=== PATIENT | female | born 1945 | race Caucasian/White ===

== ENCOUNTER 2016-12-08 13:10 | Inpatient (IN) | payer MEDICAID, MEDICARE, OTHER ==
[~2016-12-08] VITALS: Ht 142.2 cm; Wt 61.2 kg
[~2016-12-08 13:10] MED LIST: GARL600T2 PO
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
--- NOTE | 2016-12-08 13:55 | NUR ---
REFUSED TO SIGN ACI AND WANTS HER VISIT CANCELLED. ADMITTING ASKED TO ASSIST HER.
--- NOTE | 2016-12-08 14:05 | NUR ---
PATIENT SEEN TALKING TO SELF. REQUESTING PSYCHIATRIC HELP UPON CONVERSATION. MD INFORMED.
[2016-12-08 15:23] LABS: BASOPHILS % (AUTO) 0.6 % (0.0-2.0); EOSINOPHILS # (AUTO) 0.1 /CMM (0.0-0.7); EOSINOPHILS % (AUTO) 1.9 % (0.0-6.0); HEMATOCRIT 36 % (33-45); HEMOGLOBIN 12.5 g/dL (11.5-14.8); LYMPHOCYTES # (AUTO) 1.2 /CMM (0.8-4.8); LYMPHOCYTES % (AUTO) 19.2 % (20.0-44.0); MEAN CORPUSCULAR HEMOGLOBIN 32 PG (26.0-33.0); MEAN CORPUSCULAR HGB CONC 35 g/dl (31.0-36.0); MEAN CORPUSCULAR VOLUME 93 fL (82-100); MONOCYTES # (AUTO) 0.8 /CMM (0.1-1.30); MONOCYTES % (AUTO) 12.4 % (2.0-12.0); NEUTROPHILS % (AUTO) 65.9 % (43.0-81.0); PLATELET COUNT (AUTO) 210 /CMM (150-450); RDW COEFFICIENT OF VARIATION 12.7 (11.5-15.0); WHITE BLOOD COUNT (AUTO) 6.1 K/uL (4.3-11.0)
[2016-12-08 15:33] LABS: CARBON DIOXIDE 25 mmol/L (21-32); CHLORIDE 107 mmol/L (98-107); CREATININE 0.6 mg/dL (0.6-1.3); GLUCOSE 94 mg/dL (74-106); POTASSIUM 3.8 mmol/L (3.5-5.1); SODIUM SERUM 141 mmol/L (136-145); UREA NITROGEN, BLOOD 9 mg/dL (7-18)
[2016-12-08 15:39] LABS: ALANINE AMINOTRANSFERASE 21 U/L (12-78); ALBUMIN 3.9 g/dL (3.4-5.0); ALCOHOL, BLOOD < 3 mg/dL (0-0); ALKALINE PHOSPHATASE 72 U/L (46-116); ASPARTATE AMINOTRANSFERASE 20 U/L (15-37); BILIRUBIN,DIRECT 0.1 mg/dL (0.0-0.2); BILIRUBIN,TOTAL 0.5 mg/dL (0.2-1.0); TOTAL PROTEIN, SERUM 6.9 g/dL (6.4-8.2)
[2016-12-08 15:40] LABS: SALICYLATE 1.3 mg/dL (2.8-20.0)
[2016-12-08 15:41] LABS: ACETAMINOPHEN 0 ug/ml (10-30)
--- NOTE | 2016-12-08 16:01 | NUR ---
CALLED MICKIE HEAVY DUTY TRUCK MECHANIC.
--- NOTE | 2016-12-08 16:15 | NUR ---
RIGHT WRIST WRAPPED WITH LAYO PER GEORGETET ROJAS.
--- NOTE | 2016-12-08 17:02 | NUR ---
CALLED REYNA STYLIST ASSISTANT, SHE SAID SHE WOULD BE HERE IN AN HOUR.
--- NOTE | 2016-12-08 19:20 | NUR ---
REPORT GIVEN TO JOI DAVILA FOR ALBERT.
--- NOTE | 2016-12-08 19:30 | NUR ---
PATIENT RESTING IN ER BED, NAD NOTED, SKIN WARM AND DRY. WILL CONTINUE TO MONITOR
--- NOTE | 2016-12-08 21:02 | NUR ---
REPORT GIVEN TO MICHELLE AVILEZ RN FOR ALBERT
[2016-12-08 21:45] VITALS: BP 116/72
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
[2016-12-08] MEDS ORDERED: MAG HYDROX/AL HYDROX/SIMETH 30 ML UDC PO PRN (22:30)
[2016-12-08] MEDS ORDERED: LORAZEPAM 0.5 MG TABLET PO PRN (22:30)
[2016-12-08] MEDS ORDERED: MAGNESIUM HYDROXIDE 30 ML UDC PO PRN (22:30)
[2016-12-08] MEDS ORDERED: ZOLPIDEM TARTRATE 5 MG TABLET PO PRN (22:30)
[2016-12-08] MEDS ORDERED: ACETAMINOPHEN 325 MG TABLET PO PRN (22:30)
--- NOTE | 2016-12-09 06:35 | NUR ---
GPS RN NOTES CALL MADE TO ALISON SAMANIEGO, PATIENTS SON. MADE AWARE OF OF MOTHERS ADMISSION.
[2016-12-09 08:00] VITALS: BP 110/61
[2016-12-09] MEDS: risperiDONE-M 0.5 MG TAB.RAPDIS PO SCH ×2 (12:24→21:42)
[2016-12-09 16:00] VITALS: BP 114/61
[2016-12-09 18:33] LABS: BASOPHILS % (AUTO) 0.2 % (0.0-2.0); EOSINOPHILS # (AUTO) 0.1 /CMM (0.0-0.7); EOSINOPHILS % (AUTO) 2.1 % (0.0-6.0); HEMATOCRIT 39 % (33-45); HEMOGLOBIN 12.9 g/dL (11.5-14.8); LYMPHOCYTES # (AUTO) 1.7 /CMM (0.8-4.8); LYMPHOCYTES % (AUTO) 26.4 % (20.0-44.0); MEAN CORPUSCULAR HEMOGLOBIN 31 PG (26.0-33.0); MEAN CORPUSCULAR HGB CONC 33 g/dl (31.0-36.0); MEAN CORPUSCULAR VOLUME 95 fL (82-100); MONOCYTES # (AUTO) 0.6 /CMM (0.1-1.30); MONOCYTES % (AUTO) 9.8 % (2.0-12.0); NEUTROPHILS % (AUTO) 61.5 % (43.0-81.0); PLATELET COUNT (AUTO) 219 /CMM (150-450); RDW COEFFICIENT OF VARIATION 13.6 (11.5-15.0); RED BLOOD CELL COUNT(AUTO) 4.11 MIL/uL (4.0-5.2); WHITE BLOOD COUNT (AUTO) 6.6 K/uL (4.3-11.0)
[2016-12-09 18:54] LABS: ALBUMIN 3.6 g/dL (3.4-5.0); BILIRUBIN,TOTAL 0.5 mg/dL (0.2-1.0); CALCIUM, SERUM 8.7 mg/dL (8.5-10.1); CREATININE 0.8 mg/dL (0.6-1.3); POTASSIUM 3.8 mmol/L (3.5-5.1)
[2016-12-09 19:07] LABS: CHOLESTEROL 189 mg/dL (<200); HDL CHOLESTEROL 71 mg/dL (40-60); LDL 100 mg/dL (0-99); TRIGLYCERIDES 123 mg/dL (30-150)
[2016-12-09 20:00] VITALS: BP 144/60
[2016-12-09 20:57] LABS: TOTAL PROTEIN, SERUM 6.6 g/dL (6.4-8.2)
[2016-12-10 08:08] VITALS: BP 110/76
[2016-12-10] MEDS: risperiDONE-M 0.5 MG TAB.RAPDIS PO SCH ×2 (08:27→21:12)
--- NOTE | 2016-12-10 09:00 | NUR ---
[id number]: LEFT A MESSAGE ON [facility] WOUND NURSE OFFICE REGARDING FOLLOWING UP WITH PT'S WOUND CONSULT.
[2016-12-10 15:40] VITALS: BP 124/68
[2016-12-10 19:57] VITALS: BP 106/59
[2016-12-10 22:00] VITALS: BP 107/65
--- NOTE | 2016-12-10 23:15 | NUR ---
RN GPS NOTES PT. C/O ANXIETY ,ATIVAN 1 MG PO PRN GIVEN PER PT. REQUEST
--- NOTE | 2016-12-11 07:04 | NUR ---
RN NOTES PATIENT IN BED, RESTING COMFORTABLY, NO SOB, NO DISTRESS, NO BEHAVIOR DISTURBANCE DURING SHIFT,DENIES SI/HI AT THIS TIME
[2016-12-11 08:20] VITALS: BP 122/73
[2016-12-11] MEDS: risperiDONE-M 0.5 MG TAB.RAPDIS PO SCH ×2 (08:29→22:10)
--- NOTE | 2016-12-11 10:28 | NUR ---
WOUND CARE CONSULT PATIENT SEEN AND PARTIAL SKIN ASSESSMENT DONE; PATIENT ONLY ALLOWED FEET TO BE ASSESSED. PATIENT NOTED TO HAVE MULTIPLE OPEN BLISTERS ON THE BILATERAL FEET, POA. MULTIPLE BRUISES NOTED FROM ADMISSION PHOTOS. WOUND TREATMENT ORDERED AND DISCUSSED WITH NURSING STAFF AT THE BEDSIDE. PATIENT VLADISLAV 22. PT ON STRIKER GEL MATTRESS. MD IN AGREEMENT WITH TREATMENT PLAN. WILL CONTINUE TO FOLLOW PATIENT NEEDED.
[2016-12-11] MEDS ORDERED: ATORVASTATIN 10 MG TABLET PO SCH (11:00)
[2016-12-11] MEDS ORDERED: NEOMY SULF/BACITRAC ZN/POLY 15 GM TUBE TP SCH (11:30)
--- NOTE | 2016-12-11 13:11 | NUR ---
washtub worker helper left an updated clinical via voicemail to Anny Walters case finishing machine adjuster for [employer] ([phone]). washtub worker helper will follow-up. Auth # [id number]
[2016-12-11] MEDS: NEOMY SULF/BACITRAC ZN/POLY 15 GM TUBE TP SCH (13:12)
[2016-12-11 15:39] VITALS: BP 136/83
--- NOTE | 2016-12-11 15:51 | NUR ---
Initial Discharge Note: Per son, patient rents a room in a house [address] [place] [address] ([phone]). general farmworker spoke to patient's son Bryson Tolbert ([phone]) who stated that he cannot take care of her and he lives in [place]. general farmworker will help form a safe and proper discharge.
[2016-12-11 19:44] VITALS: BP 148/72
[2016-12-11] MEDS: ATORVASTATIN 10 MG TABLET PO SCH (22:10)
--- NOTE | 2016-12-11 23:00 | NUR ---
A/A/o times four, in good spirits.pleasant and coopertive,interacting with rm mate appears to be getting along .Took meds without any trouble.
--- NOTE | 2016-12-12 06:19 | NUR ---
Slept most of night. no c/o.kept safe.
[2016-12-12 08:00] VITALS: BP 122/73
[2016-12-12] MEDS: risperiDONE-M 0.5 MG TAB.RAPDIS PO SCH ×3 (08:59→21:21)
[2016-12-12] MEDS: NEOMY SULF/BACITRAC ZN/POLY 15 GM TUBE TP SCH (09:02)
--- NOTE | 2016-12-12 10:03 | NUR ---
UR Update: rolled materials worker spoke to Anny Walters rifle case repairer for [employer] ([phone]) who stated that she would authorize until 12/15/16 with a review due that day. rolled materials worker will follow-up. Auth # [id number]
--- NOTE | 2016-12-12 12:37 | NUR ---
precast worker spoke to patient regarding discharge plan and placement. Patient stated that she wanted to return to the room she rents in a house located at [address] [place] [address] ([phone]). Patient stated that she had paid rent for the month and should be able to return. Patient stated that her son Bryson has the phone number to Isaac Denton the man who rents her the room. precast worker will follow-up with patient's son.
--- NOTE | 2016-12-12 12:42 | NUR ---
tar worker attempted to contact patient's son Bryson Tolbert ([phone]) to obtain Isaac Denton phone number. However, he was unavailable. tar worker left a detailed voicemail with direct contact information. tar worker will follow-up.
[2016-12-12 16:08] VITALS: BP 114/69
[2016-12-12 20:36] VITALS: BP 135/74
[2016-12-12] MEDS: ATORVASTATIN 10 MG TABLET PO SCH (21:20)
--- NOTE | 2016-12-13 06:52 | NUR ---
RN NOTES PATIENT IN BED, RESTING COMFORTABLY, NO SOB, NO DISTRESS, NO BEHAVIOR DISTURBANCE DURING SHIFT,DENIES SI/HI AT THIS TIME.
[2016-12-13 08:48] VITALS: BP 111/65
[2016-12-13] MEDS: NEOMY SULF/BACITRAC ZN/POLY 15 GM TUBE TP SCH (08:54)
[2016-12-13] MEDS: risperiDONE-M 0.5 MG TAB.RAPDIS PO SCH ×3 (08:55→21:13)
--- NOTE | 2016-12-13 10:10 | NUR ---
poultry offal worker attempted to contact patient's son Bryson Tolbert ([phone]) to obtain Isaac Denton phone number. However, he was unavailable. poultry offal worker left a detailed voicemail with direct contact information. poultry offal worker will follow-up.
[2016-12-13 16:00] VITALS: BP 120/76
[2016-12-13 20:17] VITALS: BP 134/68
[2016-12-13] MEDS: ATORVASTATIN 10 MG TABLET PO SCH (21:12)
[2016-12-14] MEDS: risperiDONE-M 0.5 MG TAB.RAPDIS PO SCH (08:42)
[2016-12-14] MEDS: NEOMY SULF/BACITRAC ZN/POLY 15 GM TUBE TP SCH (08:46)
[2016-12-14 09:08] VITALS: BP 114/72
--- NOTE | 2016-12-14 09:38 | NUR ---
direct care worker attempted to contact Isaac Denton and Donya Denton ([phone]). Per patient, she rents a room from them and has paid this months rent. Patient wants to return upon discharge. direct care worker attempted to confirm if patient can return to that address upon discharge. However they were unavailable. direct care worker will attempt again later.
--- NOTE | 2016-12-14 13:49 | NUR ---
signal worker helper spoke Donya Denton ([phone]), who confirmed that patient does rent a room from her and her Isaac Denton. Per Donya, patient can return upon discharge and she will pick her up tomorrow 12/15/16 at 5:00PM.
[2016-12-14 16:38] VITALS: BP 107/74
[2016-12-14 20:00] VITALS: BP 116/69
[2016-12-14] MEDS: ATORVASTATIN 10 MG TABLET PO SCH (21:33)
[2016-12-14] MEDS ORDERED: risperiDONE-M 0.5 MG TAB.RAPDIS PO SCH (22:00)
[2016-12-15 08:00] VITALS: BP 98/59
[2016-12-15] MEDS ORDERED: risperiDONE-M 0.5 MG TAB.RAPDIS PO SCH (09:00)
[2016-12-15] MEDS: NEOMY SULF/BACITRAC ZN/POLY 15 GM TUBE TP SCH (09:01)
--- NOTE | 2016-12-15 10:12 | NUR ---
DR. KILLIAN GAVE AND ORDER TO D/C HOLD AND D/C HOME PT. WITHOUT DISTRESS, DENIES SUICIDAL AND HOMICIDAL AND TO FOLLOW UP WITH PSYCH AND MEDICAL DOCTORS.
--- NOTE | 2016-12-15 10:19 | NUR ---
DR. BURNS MADE OF THE DISCHARGE AND RECONCILED MEDS AND WROTE PRESCRIPTIONS. TO FOLLOW UP WITH MEDICAL DOCTOR AND TO FOLLOW UP WITH ORTHO DOCTOR IN 1 WEEK.
--- NOTE | 2016-12-15 14:49 | NUR ---
black ash worker spoke to Donya Denton ([phone]), who confirmed that she would be home to meet the patient at 5:00PM.
--- NOTE | 2016-12-15 14:50 | NUR ---
Discharge Note: Patient will be discharged back home to [address] [place] [address] ([phone]). Via taxi. Patient's son Bryson Tolbert ([phone]) and patient's landlord Donya Denton ([phone]) were both notified. Patient was agreeable with the discharge plan. Patient's mood and affect are appropriate. Patient denies suicidal and homicidal ideations. grain farmworker referred patient to [facility] ([phone]) [facility] [place] [address], patient agreed to follow-up within 30 days. grain farmworker scheduled a follow-up appointment for patient with Dr. Roche from the [facility] for 12/22/16 at 2:30PM [facility] [facility] [address] [place] [address] ([phone]). Facilitated info to IDT team who are in agreement with discharge arrangement. The multidisciplinary exitcare form was done, printed, signed, and given to the patient.
[2016-12-15 16:00] VITALS: BP 145/81
--- NOTE | 2016-12-15 16:50 | NUR ---
PT. LEFT THE UNIT WITH BELONGINGS AND ESCORTED BY STAFF TO THE LOBBY. PICTURES TAKEN FOR THE SKIN ISSUES, DISCHARGE PAPERS GIVEN. PT. INSTRUCTED ON MEDS TO CONTINUE AT HOME AND VERBALIZES UNDERSTANDING AND ADVISED TO MAKE A FOLLOW UP TO PSYCH AND MEDICAL DOCTORS AND AGREED. PT. WITH AN APPOINTMENT SCHEDULED ON DECEMBER 22, 2016 AT 2:[address] STILES AND AGREED. LEFT WITHOUT DISTRESS, AMBULATORY AND ON STABLE CONDITION. V/S TAKEN: BP 132/84, NJ 87, RR 18, OXYGEN SAT 97% AND TEMP;98.1 Addendum: 12/15/16 at 1717 by ROX MAN RN LEFT VIA A TAXI CAB.
--- NOTE | 2016-12-18 16:52 | NUR ---
UR Update: commissary worker left a voicemail for Anny Walters field nurse case manager for N ([phone]) providing the discharge summary. Auth # [id number]
== END 2016-12-15 16:50 | disposition home or self-care (01) | DRG 885 ==
LOC: ER 13:16 → GPS 20:22
PROVIDERS: ADMIT Psychiatry & Neurology Psychiatry; ATTEND Internal Medicine
DX: F31.2 Bipolar disorder, current episode manic severe with psychotic features (principal); Z91.19 Patient's noncompliance with other medical treatment and regimen; F29 Unspecified psychosis not due to a substance or known physiological condition; S52.551A Other extraarticular fracture of lower end of right radius, initial encounter for closed fracture; F41.9 Anxiety disorder, unspecified; Z87.01 Personal history of pneumonia (recurrent); Z73.6 Limitation of activities due to disability; Y93.9 Activity, unspecified; Y92.009 Unspecified place in unspecified non-institutional (private) residence as the place of occurrence of the external cause
CPT/HCPCS: 36415; 73110; 80048-TC; 80053-TC; 80061-TC; 80076-TC; 85025-TC; 87081-TC; A4606; G0480; Z7610

== ENCOUNTER 2017-10-27 22:04 | Inpatient (IN) | payer OTHER ==
[~2017-10-27] VITALS: Ht 149.9 cm; Wt 65.8 kg
--- NOTE | 2017-10-27 23:09 | NUR ---
BIBSELF C/O DEPRESSION D/T BEING HOMELESS AND UNABLE TO ACCESS BANK ACCOUNTS. DENIES SI / HI. PT AOX3 RR EVEN AND UNLABORED. NO SOB NOTED. NAD NOTED. NO NVD AT THIS TIME. PT WAITING FOR MD FULTON.
--- NOTE | 2017-10-27 23:34 | NUR ---
RADIOLOGY AT BEDSIDE FOR CXR
--- NOTE | 2017-10-27 23:45 | NUR ---
DR. RIDLEY AT BEDSIDE FOR EVAL
--- NOTE | 2017-10-27 23:51 | NUR ---
LAB AT BEDSIDE FOR BLOOD DRAW
[2017-10-28 00:03] LABS: BASOPHILS % (AUTO) 0.4 % (0.0-2.0); EOSINOPHILS % (AUTO) 2.4 % (0.0-6.0); HEMATOCRIT 39 % (33-45); HEMOGLOBIN 12.6 g/dL (11.5-14.8); LYMPHOCYTES # (AUTO) 1.2 /CMM (0.8-4.8); LYMPHOCYTES % (AUTO) 23.9 % (20.0-44.0); MEAN CORPUSCULAR HEMOGLOBIN 31 PG (26.0-33.0); MEAN CORPUSCULAR HGB CONC 32 g/dl (31.0-36.0); MEAN CORPUSCULAR VOLUME 97 fL (82-100); MONOCYTES # (AUTO) 0.5 /CMM (0.1-1.30); MONOCYTES % (AUTO) 9.8 % (2.0-12.0); NEUTROPHILS # (AUTO) 3.1 /CMM (1.8-8.9); NEUTROPHILS % (AUTO) 63.5 % (43.0-81.0); PLATELET COUNT (AUTO) 235 /CMM (150-450); RDW COEFFICIENT OF VARIATION 13.2 (11.5-15.0); RED BLOOD CELL COUNT(AUTO) 4.06 MIL/uL (4.0-5.2); WHITE BLOOD COUNT (AUTO) 4.9 K/uL (4.3-11.0)
[2017-10-28 00:08] LABS: APPEARANCE,URINE CLEAR (CLEAR); BILIRUBIN,URINE NEGATIVE (NEGATIVE); BLOOD, URINE NEGATIVE Ery/uL (NEGATIVE); COLOR,URINE YELLOW (YELLOW); KETONES,URINE NEGATIVE (NEGATIVE); LEUKOCYTE ESTERASE ,URINE NEGATIVE (NEGATIVE); NITRITE, URINE NEGATIVE (NEGATIVE); PH,URINE 5.5 (5.0-8.0); PROTEIN,URINE NEGATIVE (NEGATIVE); UGLUCOSE NEGATIVE (NEGATIVE); UROBILINOGEN,URINE 0.2 EU/dL (0.2)
[2017-10-28 00:19] LABS: CALCIUM, SERUM 8.3 mg/dL (8.5-10.1); CARBON DIOXIDE 27 mmol/L (21-32); CHLORIDE 107 mmol/L (98-107); CREATININE 0.9 mg/dL (0.6-1.3); GLUCOSE 101 mg/dL (74-106); INR 0.93 (0.87-1.13); POTASSIUM 3.7 mmol/L (3.5-5.1); SODIUM SERUM 143 mmol/L (136-145); UREA NITROGEN, BLOOD 18 mg/dL (7-18)
[2017-10-28 00:23] LABS: TROPONIN I < 0.017 ng/mL (0.00-0.056)
[2017-10-28 00:28] LABS: ALANINE AMINOTRANSFERASE 27 U/L (12-78); ALBUMIN 3.6 g/dL (3.4-5.0); ALCOHOL, BLOOD < 3 mg/dL (0-0); ALKALINE PHOSPHATASE 77 U/L (46-116); ASPARTATE AMINOTRANSFERASE 19 U/L (15-37); BILIRUBIN,DIRECT 0.1 mg/dL (0.0-0.2); BILIRUBIN,TOTAL 0.3 mg/dL (0.2-1.0); TOTAL PROTEIN, SERUM 7.1 g/dL (6.4-8.2)
[2017-10-28 00:29] LABS: ACETAMINOPHEN < 10 ug/ml (10-30); SALICYLATE 1.6 mg/dL (2.8-20.0)
--- NOTE | 2017-10-28 00:37 | NUR ---
CALLED TECHNICAL BUSINESS ANALYST MICKIE AND WAS GIVEN AN HOUR ETA
--- NOTE | 2017-10-28 01:22 | NUR ---
OIL AND GAS RECRUITER MICKIE AT BEDSIDE FOR EVAL.
--- NOTE | 2017-10-28 03:52 | NUR ---
REPORT GIVEN TO GPS GIOVANNI GAXIOLA FOR BED 215
--- NOTE | 2017-10-28 04:11 | NUR ---
PT TRANSPORTED TO [facility] VIA
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
[2017-10-28 04:54] VITALS: BP 130/79
[2017-10-28] MEDS ORDERED: MAG HYDROX/AL HYDROX/SIMETH 30 ML UDC PO PRN (05:00)
[2017-10-28] MEDS ORDERED: ZOLPIDEM TARTRATE 5 MG TABLET PO PRN (05:00)
[2017-10-28] MEDS ORDERED: ACETAMINOPHEN 325 MG TABLET PO PRN (05:00)
[2017-10-28] MEDS ORDERED: MAGNESIUM HYDROXIDE 30 ML UDC PO PRN (05:00)
[2017-10-28 08:00] VITALS: BP 115/63
[2017-10-28 15:58] VITALS: BP 114/63
[2017-10-28] MEDS: risperiDONE-M 0.5 MG TAB.RAPDIS PO SCH ×2 (17:00→18:00)
[2017-10-28] MEDS: LORAZEPAM 0.5 MG TABLET PO PRN (17:59)
[2017-10-28 19:43] VITALS: BP 115/61
[2017-10-28] MEDS: DIVALPROEX SODIUM 125 MG CAP.SPRINK PO SCH (20:48)
[2017-10-29 07:33] LABS: BASOPHILS % (AUTO) 0.5 % (0.0-2.0); EOSINOPHILS % (AUTO) 2.4 % (0.0-6.0); HEMATOCRIT 42 % (33-45); HEMOGLOBIN 14.1 g/dL (11.5-14.8); LYMPHOCYTES # (AUTO) 0.9 /CMM (0.8-4.8); MEAN CORPUSCULAR HEMOGLOBIN 32 PG (26.0-33.0); MEAN CORPUSCULAR HGB CONC 34 g/dl (31.0-36.0); MEAN CORPUSCULAR VOLUME 95 fL (82-100); MONOCYTES # (AUTO) 0.2 /CMM (0.1-1.30); MONOCYTES % (AUTO) 4.9 % (2.0-12.0); NEUTROPHILS # (AUTO) 3.5 /CMM (1.8-8.9); NEUTROPHILS % (AUTO) 74.2 % (43.0-81.0); PLATELET COUNT (AUTO) 228 /CMM (150-450); RDW COEFFICIENT OF VARIATION 13.1 (11.5-15.0); RED BLOOD CELL COUNT(AUTO) 4.42 MIL/uL (4.0-5.2); WHITE BLOOD COUNT (AUTO) 4.8 K/uL (4.3-11.0)
[2017-10-29 07:35] LABS: ALBUMIN 3.4 g/dL (3.4-5.0); BILIRUBIN,TOTAL 0.4 mg/dL (0.2-1.0); CALCIUM, SERUM 8.5 mg/dL (8.5-10.1); POTASSIUM 3.8 mmol/L (3.5-5.1); TOTAL PROTEIN, SERUM 6.7 g/dL (6.4-8.2)
[2017-10-29] MEDS: risperiDONE-M 0.5 MG TAB.RAPDIS PO SCH ×3 (08:09→16:29)
[2017-10-29] MEDS: DIVALPROEX SODIUM 125 MG CAP.SPRINK PO SCH ×3 (08:09→20:54)
[2017-10-29 08:11] LABS: THYROID STIMULATING HORMONE 1.322 uIU/mL (0.358-3.74)
[2017-10-29 16:00] VITALS: BP 118/67
[2017-10-29] MEDS: LORAZEPAM 0.5 MG TABLET PO PRN (16:29)
--- NOTE | 2017-10-29 16:29 | NUR ---
[id number]: GAVE ATIVAN 1 MG PO DUE TO INCREASED ANXIETY UPON PT REQUEST AND WILL CONTINUE TO MONITOR FOR EFFECTIVENESS OF MEDICATION
[2017-10-29 19:30] VITALS: BP 99/56
[2017-10-30 08:01] VITALS: BP 120/61
[2017-10-30] MEDS: DIVALPROEX SODIUM 125 MG CAP.SPRINK PO SCH ×2 (08:18→21:14)
[2017-10-30] MEDS: risperiDONE-M 0.5 MG TAB.RAPDIS PO SCH ×2 (08:18→17:18)
[2017-10-30] MEDS: LORAZEPAM 0.5 MG TABLET PO PRN (13:18)
--- NOTE | 2017-10-30 13:20 | NUR ---
VERY AGITATED IN DINING ROOM,THROWING THINGS,GIVEN ATIVAN 1 MG PO.IN ROOM NOW RESTING.
--- NOTE | 2017-10-30 14:54 | NUR ---
SW received a call from Shandra ([phone]), [facility] case advocate, who stated that the pt's last authorized day was yesterday, 10/29/17. BRISSA stated that she would call back once meeting with the pt to leave a clinical on her voicemail.
--- NOTE | 2017-10-30 14:56 | NUR ---
BRISSA called Shandra ([phone]), N geriatric case manager, and left a clinical on her voicemail that incorporated the pt's mental status examination, diagnosis, medications and medication changes, discharge plan as well as how many days of authorization we are asking for.
[2017-10-30 16:02] VITALS: BP 111/57
--- NOTE | 2017-10-30 16:14 | NUR ---
BRISSA called the pt's son, Bryson Tolbert ([phone]), and left a message on his voicemail regarding a treatment plan.
--- NOTE | 2017-10-30 16:15 | NUR ---
INITIAL DISCHARGE PLAN: Pt is currently homeless and per patient she makes money but it is unsure if she has access to that money. Per pt, she does not have anywhere to go. BRISSA will work with the MD and the pt regarding appropriate discharge planning. SW will form a safe and proper discharge.
--- NOTE | 2017-10-30 16:16 | NUR ---
UR Note: BRISSA called Shandra ([phone]), N director of casework department, and left a message on her voicemail regarding the results of the clinical review that was left on her voicemail earlier in the day.
[2017-10-30 20:01] VITALS: BP 147/63
[2017-10-31 08:00] VITALS: BP 115/68
[2017-10-31] MEDS: DIVALPROEX SODIUM 125 MG CAP.SPRINK PO SCH (09:28)
[2017-10-31] MEDS: risperiDONE-M 0.5 MG TAB.RAPDIS PO SCH ×2 (09:34→17:11)
--- NOTE | 2017-10-31 13:52 | NUR ---
UR Note: Shandra ([phone]), [facility] director of casework department, called the SW and left a voicemail stating that the pt is authorized three days (10/29, 10/30, and 10/31) with a review due on 11/01 stating what medication changes occurred.
--- NOTE | 2017-10-31 15:17 | NUR ---
Bryson Tolbert ([phone]), pt's son, called the SW and left a message on her voicemail.
--- NOTE | 2017-10-31 15:17 | NUR ---
BRISSA returned the pt's son, Bryson Tolbert ([phone]), phone call. BRISSA discussed the discharge plan with him. He stated that the pt does not accept any help.
[2017-10-31 16:27] VITALS: BP 124/75
[2017-10-31 19:48] VITALS: BP 117/60
[2017-10-31] MEDS ORDERED: DIVALPROEX SODIUM 500 MG TABLET.DR PO SCH (22:00)
[2017-11-01] MEDS: LORAZEPAM 0.5 MG TABLET PO PRN (01:43)
[2017-11-01 06:04] VITALS: BP 119/80
[2017-11-01 07:21] LABS: CALCIUM, SERUM 9.3 mg/dL (8.5-10.1); CREATININE 0.7 mg/dL (0.6-1.3); POTASSIUM 4.4 mmol/L (3.5-5.1)
[2017-11-01] MEDS: risperiDONE-M 0.5 MG TAB.RAPDIS PO SCH ×2 (08:41→16:25)
[2017-11-01 08:53] VITALS: BP 109/67
--- NOTE | 2017-11-01 09:16 | NUR ---
UR Note: BRISSA called Shandra ([phone]), N casework supervisor, and left a clinical on her voicemail.
--- NOTE | 2017-11-01 13:32 | NUR ---
UR Note: SW called Shandra ([phone]), N case manager specialist, and responded to the voicemail that she left for the SW with some questions that she had regarding the clinical that was left in the morning.
[2017-11-01 15:55] VITALS: BP 121/76
--- NOTE | 2017-11-01 15:56 | NUR ---
UR Note: BRISSA called Shandra ([phone]), N patient case manager, and left a message on her voicemail asking if the pt is authorized for this day.
--- NOTE | 2017-11-01 16:19 | NUR ---
UR Note: Shandra ([phone]), [facility] case resolution specialist, called the SW and informed her that the pt is authorized for 11/01/17 and that it is approved for her to be discharged the following morning with a discharge clinical right after.
[2017-11-01 20:00] VITALS: BP 108/61
[2017-11-01] MEDS ORDERED: DIVALPROEX SODIUM 500 MG TABLET.DR PO SCH (22:00)
[2017-11-02 08:00] VITALS: BP 103/59
[2017-11-02] MEDS: risperiDONE-M 0.5 MG TAB.RAPDIS PO SCH (09:07)
--- NOTE | 2017-11-02 09:14 | NUR ---
SW called [facility] ([phone]) yesterday and was unable to speak to anyone.
--- NOTE | 2017-11-02 09:15 | NUR ---
SW called [facility] ([phone]) and spoke to Jyotsna who stated that there are beds available but to call back in one hour to see how many.
--- NOTE | 2017-11-02 10:00 | NUR ---
RN NOTE:PATIENT REFUSED SKIN ASSESSMENT AND DISCHARGE PICTURES.
--- NOTE | 2017-11-02 10:16 | NUR ---
SW called [facility] ([phone]) and spoke to Jyotsna who stated that there are five beds remaining.
--- NOTE | 2017-11-02 10:45 | NUR ---
RN NOTE: Patient alert ,oriented x3 ,verbally responsive ,denies suicidal ideation denies homicidal ideation ,denies auditory ,visual hallucination.med compliant ,ambulatory self care,patient seen by and Ambreen with discharge orders ,all discharge instruction explained to patient able to verbalize understanding prescription given and explained to patient able to verbalize understanding ,all belongings returned to patient .money given by social work coordinator for [employer] .patient discharged to center for [facility] with staff WITH BUS .
--- NOTE | 2017-11-02 11:05 | NUR ---
BRISSA called the pts son, Bryson Tolbert ([phone]), and informed him that the pt was discharged to the nursing home like it was discussed previously.
--- NOTE | 2017-11-02 11:07 | NUR ---
Upon discharge, pt was provided with smoking cessation referrals, homeless half-way referrals and food bank referrals that are listed below: Smoking cessation referrals: [employer] 800-LUNGUSA [employer] [phone] Homeless [facility] [address] [place] [address] [facility] Custodial [address] [place] [address] Food Bank Referrals: [facility] Delarosa [address] [place] [address] [facility] [address] [place] [address]
--- NOTE | 2017-11-02 11:07 | NUR ---
Discharge Plan: Pt was discharged to [place] for [facility] located at [address] [place] [address]; . Pt was transported via bus and was provided with the appropriate funds to reach the intermediate which was $6. Pts son, Bryson Tolbert ([phone]), was told about the placement and he agreed. Upon discharge, the pt appeared to be alert which was not the case when she was admitted. Pt appeared to be in a euthymic mood and presented with a calm affect. Pt stated that she does not have any suicidal or homicidal ideation as well as auditory or visual hallucinations. Pt was referred to [facility] located [address] [place] [address]; for psychiatric reasons and to [facility] located at [address] [place] [address]; for citrix lead reasons.
--- NOTE | 2017-11-02 13:46 | NUR ---
UR Note: BRISSA called Shandra ([phone]), N pillowcase turner, and left the discharge clinical on her voicemail.
== END 2017-11-02 10:45 | disposition home or self-care (01) | DRG 885 ==
LOC: ER 22:07 → GPS 10-28 03:42
PROVIDERS: ADMIT Psychiatry & Neurology Psychiatry; ATTEND Nurse Practitioner Acute Care
DX: F31.2 Bipolar disorder, current episode manic severe with psychotic features (principal); G93.40 Encephalopathy, unspecified; F23 Brief psychotic disorder; F41.9 Anxiety disorder, unspecified; E78.5 Hyperlipidemia, unspecified; Z59.0 Homelessness; Z73.6 Limitation of activities due to disability
CPT/HCPCS: 36415; 70450-TC; 71045-TC; 80048-TC; 80053-TC; 80061-TC; 80076-TC; 80164-TC; 80305; 81000-TC; 82746; 84443-TC; 84484-TC; 85025-TC; 85730-TC; 87081-TC; A4606; G0480; Z7610

== ENCOUNTER 2017-11-24 22:57 | Emergency (ER) | payer OTHER ==
[~2017-11-24] VITALS: Ht 152.4 cm; Wt 64.9 kg
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
[2017-11-24 23:37] VITALS: BP 118/76
[2017-11-24] MEDS ORDERED: IBUPROFEN 600 MG TABLET PO ONE (23:41)
[2017-11-25] MEDS ORDERED: IBUPROFEN 600 MG TABLET PO ONE
== END 2017-11-25 01:38 | disposition home or self-care (01) ==
LOC: ER 22:59
DX: M25.561 Pain in right knee (principal); M25.511 Pain in right shoulder; Z59.0 Homelessness; Z96.651 Presence of right artificial knee joint; Z98.890 Other specified postprocedural states
CPT/HCPCS: 99283; A4606; Z7610

== ENCOUNTER 2017-11-28 08:08 | Emergency (ER) | payer OTHER ==
[~2017-11-28] VITALS: Ht 149.9 cm; Wt 63.5 kg
[2017-11-28 08:08] VITALS: BP 141/87
[2017-11-28] MEDS ORDERED: IBUPROFEN 600 MG TABLET PO ONE ×2 (08:29→08:30)
== END 2017-11-28 08:49 | disposition home or self-care (01) ==
LOC: ER 08:11
DX: M25.561 Pain in right knee (principal); Z59.0 Homelessness; Z96.651 Presence of right artificial knee joint; Z98.890 Other specified postprocedural states
CPT/HCPCS: 99282; A4606; Z7610

== ENCOUNTER 2019-03-30 22:46 | Emergency (ER) | payer MEDICARE, OTHER ==
[~2019-03-30] VITALS: Ht 162.6 cm; Wt 69.9 kg
[2019-03-30 23:25] VITALS: BP 134/79
[2019-03-31] MEDS ORDERED: KETOROLAC TROMETHAMINE INJ 60 MG/2 ML VIAL IM ONE ×2
== END 2019-03-31 00:22 | disposition home or self-care (01) ==
LOC: ER 22:47
DX: M25.561 Pain in right knee (principal); G89.29 Other chronic pain; Z98.890 Other specified postprocedural states
CPT/HCPCS: 96372; 99283; J1885